=== PATIENT | female | born 1975 | race Caucasian/White ===

== ENCOUNTER 2016-09-16 12:57 | Emergency (ER) | payer OTHER | END 2016-09-16 13:34 | disposition home or self-care (01) | LOC: ER 12:57 | DX: S13.9XXA Sprain of joints and ligaments of unspecified parts of neck, initial encounter (principal); X50.0XXA Overexertion from strenuous movement or load, initial encounter; F17.210 Nicotine dependence, cigarettes, uncomplicated | CPT/HCPCS: 72040; 99283 ==